=== PATIENT | female | born 2000 | race Caucasian/White ===

== ENCOUNTER 2024-08-22 10:42 | Emergency (ER) | payer OTHER ==
[~2024-08-22] VITALS: Ht 165.1 cm; Wt 66.7 kg
[2024-08-22 11:29] LABS: PLATELET COUNT (AUTO) 300 K/uL (179-408); RED BLOOD CELL COUNT(AUTO) 4.74 MIL/uL (3.63-4.92); RED CELL DISTRIBUTION WIDTH 15.1 % (12.3-17.7); WHITE BLOOD COUNT (AUTO) 6.6 K/uL (3.8-11.8)
[2024-08-22 11:38] LABS: CREATININE 0.6 mg/dL (0.6-1.3); SODIUM SERUM 143.0 mmol/L (136-145); UREA NITROGEN, BLOOD 8.0 mg/dL (7-18)
[2024-08-22] MEDS ORDERED: ACETAMINOPHEN 500 MG TABLET ONE (12:14)
[2024-08-22] MEDS ORDERED: IBUPROFEN 400 MG TABLET ONE (12:15)
[2024-08-22] MEDS: IBUPROFEN 400 MG TABLET PO ONE (12:16)
[2024-08-22] MEDS: ACETAMINOPHEN 500 MG TABLET PO ONE (12:16)
[2024-08-22 12:22] VITALS: BP 131/80; O2SAT 98
== END 2024-08-22 12:22 | disposition home or self-care (01) ==
LOC: ER 10:42
DX: R09.1 Pleurisy (principal); R07.89 Other chest pain; J45.909 Unspecified asthma, uncomplicated
CPT/HCPCS: 36415; 71045; 85025; A4606; A4663; A9150